=== PATIENT | male | born 1990 | race African-American/Black ===

== ENCOUNTER 2020-05-26 22:40 | Emergency (ER) | payer MEDICAID ==
[~2020-05-26] VITALS: Ht 188 cm; Wt 73.0 kg
[2020-05-27 01:42] LABS: BASOPHILS % 0.7 % (0.0-2.0); EOSINOPHILS % 3.5 % (0.0-5.0); HEMATOCRIT. 35.9 % (42.0-52.0); HEMOGLOBIN. 12.2 g/dL (14.0-18.0); LYMPHOCYTES % 33.5 % (20.0-50.0); MEAN CORPUSCULAR HEMOGLOBIN 32.7 pg (28.0-32.0); MEAN CORPUSCULAR VOLUME 96.1 fL (80.0-94.0); MEAN PLATELET VOLUME 8.7 fl (7.4-10.4); NEUTROPHILS % 52.3 % (40.0-76.0); PLATELET 202 x1000/uL (130-400); RED BLOOD CELL COUNT 3.74 mill/uL (4.7-6.1); RED CELL DISTRIBUTION WIDTH 12.8 % (11.6-14.6)
[2020-05-27 01:48] LABS: CHLORIDE 101 mEq/L (98-107)
[2020-05-27 01:55] LABS: ETHANOL BLOOD < 10 mg/dL
[2020-05-27 05:35] VITALS: BP 120/82
== END 2020-05-27 05:30 | disposition home or self-care (01) ==
LOC: ER 22:40
DX: F31.9 Bipolar disorder, unspecified (principal); F17.200 Nicotine dependence, unspecified, uncomplicated; I49.9 Cardiac arrhythmia, unspecified; Z98.890 Other specified postprocedural states
CPT/HCPCS: 36415; 80053; 80320; 85025; 93005; 99285; G0480